=== PATIENT | male | born 1965 | race Caucasian/White ===

== ENCOUNTER → 2019-04-29 09:34 | Outpatient (CLI) | payer BC, SELFPAY ==
--- NOTE | 2019-04-29 09:54 | CT_ITS ---
PROCEDURE: CT LUNG SCREENING CLINICAL INDICATION: NICOTINE DEPENDENCE Greater than 30 pack-year smoking history, asymptomatic for lung cancer COMPARISON: No exams were available for comparison TECHNIQUE: The exam was performed on a GE Light Speed [address] scanner using 2.90 mGy CTDI. A low dose helical CT CHEST was performed on a multi-detector scanner. All CT scans at the facility use one or more dose reduction, viz: automated exposure control, ma/kV adjustment per patient size (including targeted exams where dose is matched to indication, i.e. head), or iterative reconstruction technique. The LDCT was performed in a facility that meets the criteria for the screening program. Data regarding this exam was submitted to ACR which is an approved registry. The order for this exam indicates that it came as a result of a lung cancer screening counseling shard decision-making visit that included all the elements required of such a visit including smoking cessation. The radiologist interpreting this exam meets the [facility] criteria for the LDCT lung cancer screening program. The exam is reported using the Lung-RADS classification scale and reported to the ACR registry. NOTE: This study was performed for the specific purposes of lung cancer screening and is not an alternative to diagnostic chest CT. RADIATION DOSE: CTDI vol(CT dose Index-volume) = 2.90mG DLP (Dose Length Product) = 108.38 mGcm Lung Rads Category: FINDINGS: COPD with scattered areas of scarring. Fibronodular changes are present in both apices. There is a cluster of small nodules in the right middle lobe laterally and noncalcified nodule in the right middle lobe inferiorly and anteriorly at 6 mm. There is evidence of old granulomatous disease with scattered calcified granulomas there is mild coarsening of the bronchovascular markings which may be seen with smoking related lung disease. OTHER FINDINGS: Coronary artery calcifications. Gynecomastia IMPRESSION: Lung rads category 3 probably benign. Recommend six-month CT follow-up Coronary artery disease COPD Dictated by: Dell Olguin MD 05/04/2019 10:04 Electronically signed by Dell Olguin MD in [place] 05/04/2019 10:04
== END ==
PROVIDERS: PCP Internal Medicine Adolescent Medicine; Visit Provider Internal Medicine Adolescent Medicine
DX: Z87.891 Personal history of nicotine dependence (principal); Z12.2 Encounter for screening for malignant neoplasm of respiratory organs

== ENCOUNTER → 2019-10-25 12:28 | Outpatient (CLI) | payer BC, SELFPAY ==
--- NOTE | 2019-10-25 12:33 | CT_ITS ---
PROCEDURE: CT CHEST WO/W CON CLINCAL INDICATION: MULTIPLE LUNG NODULES,H/O TOBACCO USE Multiple lung nodules,,,smoker COMPARISON: CT CT LUNG SCREENING from 04/29/2019 TECHNIQUE: IV Contrast: 75ml Optiray 350 Axial images obtained with sagittal and coronal reformats. All CT scans at the facility use one or more dose reduction, viz: automated exposure control, ma/kV adjustment per patient size (including targeted exams where dose is matched to indication, i.e. head), or iterative reconstruction technique. FINDINGS: HEART AND MEDIASTINAL STRUCTURES: There are coronary artery calcifications. No mediastinal or hilar mass or adenopathy. Calcified nodes are present in the subcarinal region LUNGS AND PLEURAL SPACES: Changes of COPD. Mild biapical scarring. Minimal centrilobular emphysema. Minimal 4 mm parenchymal opacity is present in the right middle lobe and may be due to an area of parenchymal scarring not significantly changed. Image 53 series 3 parenchymal opacity also noted in the right middle lobe laterally with small nodular opacities at this region which are unchanged 4 mm noncalcified nodule right middle lobe anterior laterally somewhat less apparent compared to the previous exam. No new nodules evident. There are some scattered calcified granulomas BONY STRUCTURES: No acute bony abnormalities apparent. UPPER ABDOMEN: Unremarkable. ADDITIONAL FINDINGS: No other significant abnormalities. IMPRESSION: 1. Stable CT appearance of the chest. Small nodular densities in the right middle lobe are stable. 2. COPD with mild centrilobular emphysema and evidence of old granulomatous disease. 3. Suggest continued screening annual LDCT Dictated by: Dell Olguin MD 10/27/2019 08:19 Dell Olguin MD in [place] 10/27/2019 08:19
[2019-10-25 13:21] LABS: Blood Urea Nitrogen 5 mg/dl (9-20); Estimated Glomerular Filt Rate 78 ml/min (>60); GFR (African American) 94 ML/MIN (>60)
== END ==
PROVIDERS: PCP Internal Medicine Adolescent Medicine; Visit Provider Nurse Practitioner Family
DX: R91.8 Other nonspecific abnormal finding of lung field (principal); Z87.891 Personal history of nicotine dependence
CPT/HCPCS: 36415; 71270; 82565; 84520; Q9967

== ENCOUNTER 2020-04-03 14:03 | Emergency (ER) | payer BC, SELFPAY ==
[2020-04-03 14:40] VITALS: BP 156/72; PULSE 65; RESP 14; TEMP 36.6; O2SAT 100; BMI 25.2
--- NOTE | 2020-04-03 14:48 | HMH.EDUTC ---
[facility] [place] Clinical Impression: Laceration Disposition: Home, Self-Care Condition on Discharge: Good Instructions: How to Care for a Laceration After Repair, Laceration Repair Additional Instructions: Suture instructions: You have required stitches today. Please read the following instructions so you know how to care for them: 1. Keep wound area dry for the first 24 hours. 2 May clean gently with mild soap and water, after 48 hours to prevent crusting over suture knots. 3. You may shower if your provider gives permission but do not take a bath until the skin is healed.. 4. Never leave a wet dressing or Band-Aid on your stitches as this allows bacteria to reach the area and may cause infection. Band-aids can cause the wound to sweat and not recommended to wear for long periods of time Watch for signs of infection: Increasing redness, tenderness or warmth around the suture site Unusual swelling around the site Appearance of pus around each suture or any red streaks Fever If you develop any of the above signs or symptoms of infection, Follow up with Family Physician immediately 5. Suture removal in _7-10___days 6. Return to [facility] or follow up with family doctor for removal. This can be done by any medical provider during regular hours on Monday through Monday, by appointment. Referrals: Ori Paniagua MD [Primary Care Provider] - As needed Time of Disposition: 15:36 Medical Decision Making - Marshall Inquiry Pt receiving controlled substance: No Marshall was queried for this patient: No Vital Signs: 04/03/20 14:40 04/03/20 15:46 Temperature 97.8 F 97.9 F Temperature Source Tympanic Tympanic Pulse Rate 65 Pulse Rate [Right] 65 Respiratory Rate 14 14 Blood Pressure 155/72 H Blood Pressure [Right Arm] 156/72 H Blood Pressure Mean [Right Arm] 100 Blood Pressure Source Automatic Cuff Blood Pressure Source [Right Arm] Automatic Cuff Blood Pressure Position Sitting Blood Pressure Position [Right Arm] Sitting 02 Sat by Pulse Oximetry 100 Medical Decision Narrative: Patient reports last tetanus about 3 yrs [place] [facility] [place] - General Stated complaint: laceration to left thumb Time Seen by Provider: 04/03/20 14:48 Mode of Arrival: Ambulatory Source of Information: Patient Limitations: No Limitations Description of Symptoms (Recalled from Triage Doc. by RN): pt cut left palm with his hunting knife. its about an inch long with clean edges. HEENT Symptoms (Recalled from RN notes): No Resp Symptoms (Recalled from RN notes): No Skin Symptoms (Recalled from RN notes): Yes (laceration on left palm) MS Symptoms (Recalled from RN notes): No Functional Status (Recalled from RN notes): na - History of Present Illness Provider Complaint: Patient states that he accidently cut the palm of his left hand with his hunting knife State that he noticed it looked like he may need stitches so he came in to get it checked States that he is able to move his fingers easily and denies numbness - Related Data Home Medications Medication Instructions Recorded Confirmed cholecalciferol (vitamin D3) 75 3,000 unit PO DAILY 04/29/19 05/14/19 mcg (3,000 unit) tablet cyanocobalamin (vitamin B-12) 3,000 mcg PO DAILY 04/29/19 05/14/19 3,000 mcg capsule montelukast 10 mg tablet 10 mg PO DAILY 04/29/19 05/14/19 tamsulosin 0.4 mg capsule 0.4 mg PO DAILY 04/29/19 05/14/19 Sodium, Potassium,Mag Sulfates See Rx Instructions PO .COMPLEX 05/13/19 05/14/19 [Suprep Bowel Prep Kit] Varenicline Tartrate [Chantix] 0.5 mg PO DAILY 05/14/19 05/14/19 Allergies Allergy/AdvReac Type Severity Reaction Status Date / Time No Known Allergies Allergy Verified 05/13/19 09:31 - Worker's Comp Is this a Worker's Comp case?: No [facility] History - Hepatitis A Screen Drug use history?: No High risk sexual behaviors?: No History of sexually transmitted infection?: No Currently employed?: No Childcare worker?: No Do you have indoor p
[2020-04-03 15:46] VITALS: BP 155/72; PULSE 65; RESP 14; TEMP 36.6
== END 2020-04-03 15:47 | disposition home or self-care (01) ==
PROVIDERS: Emergency Provider Nurse Practitioner; PCP Internal Medicine Adolescent Medicine
DX: S61.012A Laceration without foreign body of left thumb without damage to nail, initial encounter (principal); W26.0XXA Contact with knife, initial encounter; Y92.019 Unspecified place in single-family (private) house as the place of occurrence of the external cause; F17.210 Nicotine dependence, cigarettes, uncomplicated
CPT/HCPCS: 12001; 99202; G0463

== ENCOUNTER → 2021-02-03 06:44 | Outpatient (CLI) | payer BC, SELFPAY ==
--- NOTE | 2021-02-03 06:49 | CT_ITS ---
PROCEDURE: CT LUNG SCREENING CLINICAL INDICATION: CURRENT SMOKER COMPARISON: CT CT CHEST WO/W CON from 10/25/2019 TECHNIQUE: The exam was performed on a GE Light Speed [address] scanner using 2.90 mGy CTDI. A low dose helical CT CHEST was performed on a multi-detector scanner. All CT scans at the facility use one or more dose reduction, viz: automated exposure control, ma/kV adjustment per patient size (including targeted exams where dose is matched to indication, i.e. head), or iterative reconstruction technique. The LDCT was performed in a facility that meets the criteria for the screening program. Data regarding this exam was submitted to ACR which is an approved registry. The order for this exam indicates that it came as a result of a lung cancer screening counseling shard decision-making visit that included all the elements required of such a visit including smoking cessation. The radiologist interpreting this exam meets the CMS criteria for the LDCT lung cancer screening program. The exam is reported using the Lung-RADS classification scale and reported to the ACR registry. NOTE: This study was performed for the specific purposes of lung cancer screening and is not an alternative to diagnostic chest CT. RADIATION DOSE: CTDI vol(CT dose Index-volume) = 2.90mG DLP (Dose Length Product) = 119.59 mGcm FINDINGS: COPD changes. Nonspecific parenchymal opacities right middle lobe as previously described not significantly changed. Subpleural 3 mm nodule right middle lobe unchanged. Scattered calcified granulomas. No suspicious nodules identified. OTHER FINDINGS: Coronary artery calcifications. Calcified subcarinal node. IMPRESSION: Lung-RADS Category 2 Benign Appearance or Behavior Follow-up: Continue annual screening with LDCT in 12 months Dictated by: Dell Olguin MD 02/08/2021 07:36 Dell Olguin MD in [place] 02/08/2021 07:36
== END ==
PROVIDERS: PCP Internal Medicine Adolescent Medicine; Visit Provider Nurse Practitioner Family
DX: Z87.891 Personal history of nicotine dependence (principal); Z12.2 Encounter for screening for malignant neoplasm of respiratory organs
CPT/HCPCS: 71271

== ENCOUNTER → 2022-01-28 18:01 | Outpatient (CLI) | payer BC, SELFPAY | PROVIDERS: PCP Nurse Practitioner Family; Visit Provider Nurse Practitioner Family | DX: U07.1 COVID-19 (principal); J02.9 Acute pharyngitis, unspecified | CPT/HCPCS: 87070; C9803; U0003; U0005 ==

== ENCOUNTER → 2022-02-04 13:15 | Outpatient (CLI) | payer BC, SELFPAY ==
--- NOTE | 2022-02-04 13:18 | CT_ITS ---
FINAL REPORT TECHNIQUE: Axial images were obtained from the lung apex to the mid abdomen by computed tomography. This study was performed with techniques to keep radiation doses as low as reasonably achievable (ALARA). Individualized dose reduction techniques using automated exposure control or adjustment of mA and/or kV according to the patient's size were employed. CLINICAL HISTORY: smoker. 2 ppd x 12 years. COMPARISON: 02/03/2021 and 10/25/2019 FINDINGS: CHEST CT LOW DOSE CTDI vol (mGy): 2.90 DLP (mGy-cm): 108.64 There is no axillary adenopathy. There is no hilar or mediastinal adenopathy. The heart is normal in size. There is no pericardial or pleural effusion. There is mild scarring. There is a stable 3 mm lateral right middle lobe nodule. Several other smaller adjacent nodules are identified. There is a 4 mm lingular nodule which is stable. There is a calcified granuloma in the left lung. Limited images of the upper abdomen are unremarkable. IMPRESSION: Stable nodules for 2 years. Lung RADS category 1. Recommend 12 month follow-up low-dose chest CT. Reviewed, Interpreted and Dictated by Danny Moreno III, MD Transcribed by Ramila Hartman Authenticated and [facility]
== END ==
PROVIDERS: PCP Nurse Practitioner Family; Visit Provider Nurse Practitioner Family
DX: Z87.891 Personal history of nicotine dependence (principal); Z12.2 Encounter for screening for malignant neoplasm of respiratory organs
CPT/HCPCS: 71271

== ENCOUNTER 2022-07-31 18:04 | Emergency (ER) | payer BC, SELFPAY ==
[2022-07-31 18:05] VITALS: BP 161/80; PULSE 68; RESP 18; TEMP 36.8; O2SAT 97; BMI 25.0
--- NOTE | 2022-07-31 18:07 | PC.NURSE ---
DR CENTENO AT BEDSIDE
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
[2022-07-31 18:30] VITALS: BP 141/86; PULSE 68; RESP 18; O2SAT 96
[2022-07-31 18:53] VITALS: BP 141/86; PULSE 68; RESP 18; TEMP 36.7; O2SAT 97
== END 2022-07-31 18:55 | disposition home or self-care (01) ==
PROVIDERS: Emergency Provider Emergency Medicine; PCP Nurse Practitioner Family
DX: T22.231A Burn of second degree of right upper arm, initial encounter (principal); F17.210 Nicotine dependence, cigarettes, uncomplicated; X18.XXXA Contact with other hot metals, initial encounter
CPT/HCPCS: 99283; 99284

== ENCOUNTER 2023-06-05 14:58 | Outpatient (CLI) | payer BC, SELFPAY ==
[2023-06-05 16:27] LABS: Blood Urea Nitrogen 7 mg/dl (9-20); Estimated Glomerular Filt Rate 77 ml/min (>60); GFR (African American) 93 ML/MIN (>60)
[2023-06-06 08:26] LABS: PSA, Free 0.65 ng/mL
== END 2023-06-05 23:59 ==
LOC: LAB 14:58
PROVIDERS: PCP Internal Medicine Adolescent Medicine; Visit Provider Urology
DX: Z98.52 Vasectomy status (principal); N40.0 Benign prostatic hyperplasia without lower urinary tract symptoms
CPT/HCPCS: 36415; 82565; 84153; 84154; 84520

== ENCOUNTER 2023-06-09 14:50 | Emergency (ER) | payer BC, SELFPAY ==
[2023-06-09] VITALS (8 sets, daily range): BP systolic 92–166; BP diastolic 55–89; PULSE 49–86; RESP 13–19; TEMP 36.4–36.7; O2SAT 93–99; BMI 26.9
--- NOTE | 2023-06-09 14:52 | PC.NURSE ---
Dr. Corcoran at [facility] for pt eval
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
--- NOTE | 2023-06-09 14:55 | CT_ITS ---
FINAL REPORT TECHNIQUE: Thin section axial CT with IV contrast supplemented with multiplanar reconstruction under CT angiogram protocol. 3-D reconstructions were performed. This study was performed with techniques to keep radiation doses as low as reasonably achievable (ALARA). Individualized dose reduction techniques using automated exposure control or adjustment of mA and/or kV according to the patient''s size were employed. CLINICAL HISTORY: trauma, critical injury suspected FINDINGS: The distal vertebral, basilar and distal internal carotid arteries have an unremarkable appearance. No aneurysm is seen. Major intracranial vessels are patent without significant stenosis. IMPRESSION: No evidence of significant stenosis or occlusion. Reviewed, Interpreted and Dictated by Danny Moreno III, MD Transcribed by Ramila Hartman Authenticated and [facility]
--- NOTE | 2023-06-09 14:55 | CT_ITS ---
FINAL REPORT TECHNIQUE: Postcontrast axial images of the chest were performed in a CTA protocol. This study was performed with techniques to keep radiation doses as low as reasonably achievable, (ALARA). Individualized dose reduction technique using automated exposure control or adjustment of mA and/or kV according to the patient's size were employed. CLINICAL HISTORY: trauma, critical injury suspected FINDINGS: The heart is normal in size. No adenopathy is identified. No pleural or pericardial effusion is identified. The thoracic aorta is normal in caliber with no focal aneurysm or dissection identified. There is no filling defect to suggest pulmonary embolism. No lung infiltrate or mass is identified. Mild atelectasis is seen. There is no pneumothorax. No acute osseous abnormality of the chest is seen. IMPRESSION: No evidence for PE on this exam. Reviewed, Interpreted and Dictated by Danny Moreno III, MD Transcribed by Ludivina Cantu Authenticated and [facility]
--- NOTE | 2023-06-09 14:55 | CT_ITS ---
FINAL REPORT TECHNIQUE: Axial images were obtained of the cervical spine by computed tomography. Coronal and sagittal reconstruction process performed. This study was performed with techniques to keep radiation doses as low as reasonably achievable (ALARA). Individualized dose reduction techniques using automated exposure control or adjustment of mA and/or kV according to the patient''s size were employed. CLINICAL HISTORY: trauma, critical injury suspected FINDINGS: There is no acute fracture. Mild and moderate degenerative changes are present. There is neural foraminal narrowing at C4-5 and C5-6. There is mild central canal stenosis at C5-6. IMPRESSION: No acute fracture. Degenerative disc disease as above. Reviewed, Interpreted and Dictated by Danny Moreno III, MD Transcribed by Ramila Hartman Authenticated and [facility]
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
--- NOTE | 2023-06-09 14:55 | CT_ITS ---
FINAL REPORT CLINICAL HISTORY: trauma, critical injury suspected FINDINGS: Axial CT images of the thoracic spine were obtained without contrast. Sagittal and coronal reformatted images were also obtained. This study was performed with techniques to keep radiation doses as low as reasonably achievable (ALARA). Individualized dose reduction techniques using automated exposure control or adjustment of mA and/or kV according to the patient's size were employed. There is no evidence of fracture. Mild degenerative changes are present. There is no canal stenosis. IMPRESSION: Mild degenerative changes without acute bony abnormality. Reviewed, Interpreted and Dictated by Danny Moreno III, MD Transcribed by Ramila Hartman Authenticated and . [facility]
--- NOTE | 2023-06-09 14:55 | CT_ITS ---
FINAL REPORT CLINICAL HISTORY: trauma, critical injury suspected FINDINGS: Axial images of the head were obtained without contrast. Coronal reformatted images were also obtained.This study was performed with techniques to keep radiation doses as low as reasonably achievable (ALARA). Individualized dose reduction techniques using automated exposure control or adjustment of mA and/or kV according to the patient's size were employed. There is no evidence of intracranial hemorrhage or mass. The ventricular size is within normal limits. There is no evidence of shift of the midline structures. No abnormal extra axial fluid collection is identified. No skull abnormality is seen on the bone window images. IMPRESSION: No acute intracranial abnormality. Reviewed, Interpreted and Dictated by Danny Moreno III, MD Transcribed by Ramila Hartman Authenticated and [facility]
--- NOTE | 2023-06-09 14:56 | XR_ITS ---
FINAL REPORT CLINICAL HISTORY: fall 14 ft COMPARISON: None FINDINGS: SINGLE VIEW PELVIS: A single view of the pelvis was obtained. There is no acute fracture or dislocation. There are mild degenerative changes of the hips. Visualized joint spaces are normally aligned. Soft tissues are unremarkable. IMPRESSION: No acute bony abnormality. Reviewed, Interpreted and Dictated by Danny Moreno III, MD Transcribed by Sona Kuo Authenticated and [facility]
--- NOTE | 2023-06-09 14:56 | XR_ITS ---
FINAL REPORT CLINICAL HISTORY: fall 14 ft COMPARISON: None FINDINGS: A single portable view of the chest was obtained. The heart size and pulmonary vascularity are within normal limits. The mediastinum is within normal limits. No acute pulmonary abnormality is identified. The bony thorax is intact. IMPRESSION: No active cardiopulmonary disease. Reviewed, Interpreted and Dictated by Danny Moreno III, MD Transcribed by Sona Kuo Authenticated and [facility]
[2023-06-09] MEDS: FENTANYL 250MCG/5ML VIAL 100 MCG IV (15:00)
[2023-06-09] MEDS: ONDANSETRON 4MG/2ML VIAL 4 MG IV (15:00)
[2023-06-09] MEDS: LACTATED RINGERS 1000ML 1,000 ML 999 ML IV (15:00)
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
--- NOTE | 2023-06-09 15:02 | PC.NURSE ---
Manual BP 110/60
--- NOTE | 2023-06-09 15:09 | PC.NURSE ---
SMALL VOID PER URINAL
--- NOTE | 2023-06-09 15:10 | PC.NURSE ---
PT TO CT
--- NOTE | 2023-06-09 15:10 | PC.NURSE ---
Pt gone to RAD via stretcher
--- NOTE | 2023-06-09 15:10 | PC.NURSE ---
patient gone to CT at this time.
[2023-06-09 15:26] LABS: Microscopic, Urine URINE MICROSCOPIC (MICROSCOPIC)
[2023-06-09 15:31] LABS: Chloride 103 mmol/L (98-107); Potassium 3.5 mmoL/L (3.5-5.1); Sodium 137 mmol/L (136-145)
[2023-06-09 15:32] LABS: Activated Partial Thrombo Time 24.6 seconds (22.8-30.6); INR 1.02 (0.9-1.1)
[2023-06-09 15:33] LABS: Alanine Aminotransferase 31 U/L (12-78); Alkaline Phosphatase 69 U/L (38-126); Aspartate Amino Transferase 45 U/L (17-59); Blood Urea Nitrogen 6 mg/dl (9-20); Creatinine Clearance Estimated 70 mL/min (50-200); Estimated Glomerular Filt Rate 62 ml/min (>60); GFR (African American) 75 ML/MIN (>60)
[2023-06-09 15:34] LABS: Appearance,Urine CLEAR (Clear); Bilirubin,Urine Negative (Negative); Blood, Urine Negative (Negative); Color,Urine YELLOW (Yellow); Glucose,Urine (UA) Negative (Negative); Ketones,Urine Negative (Negative); Leukocyte Esterase,Urine Negative (Negative); Nitrate,Urine Negative (Negative); Protein,Urine Negative (Negative); Specific Gravity, Urine <= 1.005 (1.005-1.030); Urobilinogen,Urine 0.2 EU/dl (0.2)
[2023-06-09 15:34] LABS: Albumin/Globulin Ratio 1.7 (1.1-1.8); Anion Gap 5.5 mEq/L (5-15); Calcium 8.9 mg/dl (8.4-10.2); Carbon Dioxide 32 mmol/L (22.0-30.0); Globulin 2.4 g/dL (1.3-3.2); Glucose 135 mg/dl (74-100); Total Protein,Serum 6.4 g/dl (6.3-8.2)
--- NOTE | 2023-06-09 15:47 | PC.NURSE ---
PT RETURNED FROM CT
[2023-06-09 15:52] LABS: Squamous Epithelial Cell,Urine Occasional #/hpf (0-5); WBC,Urine Occasional #/hpf (0-3)
[2023-06-09] MEDS: SODIUM CHLORIDE 0.9% 10ML SYR (RAD ONLY) 10 ML IV (15:53)
[2023-06-09] MEDS: 0.9 % SODIUM CHLORIDE 50 ML VIAL 100 ML IV (15:53)
[2023-06-09] MEDS: IOPAMIDOL-370 (76%);100ML BOTTLE 200 ML IV (15:53)
--- NOTE | 2023-06-09 16:05 | PC.NURSE ---
DR WEBER AT BEDSIDE
--- NOTE | 2023-06-09 16:09 | PC.NURSE ---
PT PROVIDED URINAL. S.O.. AT BEDSIDE. NO FURTHER NEEDS AT THIS TIME
--- NOTE | 2023-06-09 16:38 | PC.NURSE ---
o/p with transfer center at this time.
--- NOTE | 2023-06-09 16:41 | PC.NURSE ---
ROUNDED ON PT, ADDITIONAL WARM BLANKET APPLIED. REQUESTS PAIN MEDICATION. AWARE
--- NOTE | 2023-06-09 16:43 | PC.NURSE ---
o/p with at this time
[2023-06-09] MEDS: HYDROMORPHONE 2MG/ML SYRINGE 0.5 MG IV (16:52)
--- NOTE | 2023-06-09 17:35 | PC.NURSE ---
pt and family aware of no truck availability at this time.
--- NOTE | 2023-06-09 18:18 | PC.NURSE ---
REPORT CALLED TO LINDA HACKETT AT ED
== END 2023-06-09 19:05 | disposition short-term general hospital (02) ==
PROVIDERS: Emergency Medicine; Emergency Provider Emergency Medicine; PCP Internal Medicine Adolescent Medicine
DX: S32.010A Wedge compression fracture of first lumbar vertebra, initial encounter for closed fracture (principal); S32.10XA Unspecified fracture of sacrum, initial encounter for closed fracture; F17.210 Nicotine dependence, cigarettes, uncomplicated; J44.9 Chronic obstructive pulmonary disease, unspecified; W11.XXXA Fall on and from ladder, initial encounter
CPT/HCPCS: 70450; 70496; 70498; 71045; 71275; 72125; 72128; 72131; 72170; 72192; 74174; 80053; 81001; 85610; 85730; 96361; 96374; 96375; 99285; J2405; Q9967

== ENCOUNTER 2023-06-27 14:39 | Outpatient (CLI) | payer BC, SELFPAY ==
[2023-06-27 15:32] LABS: PH,Semen 8.5 (7.3-8.3); Semen Viscosity Watery (Normal); Volume,Semen 3.5 ml (2.0-5.0); WBCs,Semen Trace
[2023-06-27 15:33] LABS: Sperm Count 0 mil/mm3 (20-160)
== END 2023-06-27 23:59 | disposition home or self-care (01) ==
LOC: LAB 14:40
PROVIDERS: PCP Nurse Practitioner Family; Visit Provider Urology
DX: Z98.52 Vasectomy status (principal); N40.0 Benign prostatic hyperplasia without lower urinary tract symptoms
CPT/HCPCS: 89320

== ENCOUNTER 2023-08-22 07:50 | Outpatient (CLI) | payer BC, SELFPAY ==
[2023-08-22] MEDS: ALBUTEROL 0.083% 2.5 MG/3 ML NEB IH (08:31)
--- NOTE | 2023-08-22 08:31 | PC.NURSE ---
PFT and 6 Minute Walk Test completed without incident. Albuterol 0.083% given, per written protocol, via HHN, Pt tolerated tx well.
== END 2023-08-22 23:59 | disposition home or self-care (01) ==
LOC: RT 07:51
PROVIDERS: PCP Internal Medicine Adolescent Medicine; Visit Provider Internal Medicine Pulmonary Disease
DX: R06.09 Other forms of dyspnea (principal)
CPT/HCPCS: 94060; 94618; 94726; 94729; J7613

== ENCOUNTER 2024-04-10 19:37 | Emergency (ER) | payer BC, SELFPAY ==
[2024-04-10] VITALS (7 sets, daily range): BP systolic 141–157; BP diastolic 74–88; PULSE 60–72; RESP 16–18; TEMP 36.6; O2SAT 96–99; BMI 25.8
--- NOTE | 2024-04-10 19:35 | ECG_ITS ---
APPROVED REPORT Exam: Resting ECG HR:66 bpm ECG Measurements Heart Rate 66 AXES RI 157 P 74 QRSd 105 QRS 64 QT 389 T 53 QTc 403 Conclusion Sinus rhythm Electronically signed by : CLINT AWAN, 04/10/2024 22:09:42
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
--- NOTE | 2024-04-10 19:42 | CT_ITS ---
PROCEDURE INFORMATION: Exam: CTA Chest With Contrast Exam date and time: 04/10/2024 8:17 PM Age: 58 years old Clinical indication: Pain; Chest pressure; Additional info: Left-sided chest pain dyspnea TECHNIQUE: Imaging protocol: Computed tomographic angiography of the chest with contrast. Exam focused on the arteries. 3D rendering (Not supervised by radiologist): MIP and/or 3D reconstructed images were created by the technologist. Radiation optimization: All CT scans at this facility use at least one of these dose optimization techniques: automated exposure control; mA and/or kV adjustment per patient size (includes targeted exams where dose is matched to clinical indication); or iterative reconstruction. Contrast material: ISOVUE; Contrast volume: 70 ml; Contrast route: INTRAVENOUS (IV); COMPARISON: CT ANGIO CHEST 06/09/2023 3:34 PM FINDINGS: Pulmonary arteries: Normal. No pulmonary emboli. Aorta: Mild calcification of the aorta. Lungs: Multiple subpleural nodules in the right middle lobe measuring up to 5 mm. Mild tree-in-bud opacities in the right middle lobe. Calcified granulomata in the right lower lobe. Pleural spaces: Unremarkable. No pneumothorax. No pleural effusion. Heart: Unremarkable. No cardiomegaly. No pericardial effusion. Coronary arteries: Mild calcification of the coronary arteries. Lymph nodes: Calcified subcarinal lymph nodes. Bones/joints: Unremarkable. No acute fracture. Soft tissues: Unremarkable. IMPRESSION: 1. No pulmonary embolus. 2. No aortic aneurysm or dissection. 3. Mild tree-in-bud opacities in the right middle lobe. Suspicious for infectious bronchiolitis 4. Multiple subpleural nodules in the right middle lobe measuring up to 5 mm. Stable in appearance compared to 06/09/2023. As per Fleischner Society guidelines for follow-up and management of multiple pulmonary nodules measuring less than 6 mm: For patients at low risk, no specific followup is recommended. For patients at high risk, consider followup CT in 12 months.
[2024-04-10 19:48] LABS: Basophils # 0.1 K/mm3 (0-0.2); Basophils % 0.7 % (0.1-2.0); Eosinophils # 0.2 K/mm3 (0.0-0.4); Eosinophils % 1.8 % (0.1-12.0); Hematocrit 43.3 % (42.0-52.0); Hemoglobin 14.9 g/dL (14.1-18.0); Lymphocytes % 19.3 % (10-50); Mean Corpuscular HGB Conc 34.4 g/dL (31.8-35.4); Mean Corpuscular Hemoglobin 31.9 pg (27.0-31.2); Mean Corpuscular Volume 92.7 fl (80-94); Mean Platelet Volume 10.6 fl (7.4-10.4); Monocytes # 0.4 K/mm3 (0.1-1.0); Neutrophils # 7.6 K/mm3 (1.8-7.8); Neutrophils % 73.5 % (37.0-80.0); Platelet Count 270 K/mm3 (142-424); Red Blood Count 4.67 M/mm3 (4.60-6.20); Red Cell Distribution Width 12.9 % (11.5-17.5); White Blood Count 10.4 K/mm3 (4.8-10.8)
[2024-04-10 19:52] LABS: Coronavirus 19, PCR Not Detected (NotDetected); Influenza A, PCR Not Detected (NotDetected); Influenza B, PCR Not Detected (NotDetected)
[2024-04-10 19:52] LABS: Albumin Level 4.4 g/dl (3.5-5.0); Chloride 103 mmol/L (98-107); Potassium 3.7 mmoL/L (3.5-5.1); Sodium 139 mmol/L (136-145)
[2024-04-10] MEDS: DEXAMETHASONE 4MG/ML 5ML MDV 10 MG IV (19:53)
[2024-04-10] MEDS: KETOROLAC 30MG/ML VIAL 15 MG IV (19:53)
[2024-04-10] MEDS: ACETAMINOPHEN 1,000MG/100ML VIAL 1000 MG IV (19:53)
[2024-04-10 19:55] LABS: Alanine Aminotransferase 28 U/L (12-78); Albumin/Globulin Ratio 1.8 (1.1-1.8); Anion Gap 8.7 mEq/L (5-15); Aspartate Amino Transferase 37 U/L (17-59); Blood Urea Nitrogen 12 mg/dl (9-20); Calcium 9.1 mg/dl (8.4-10.2); Carbon Dioxide 31 mmol/L (22.0-30.0); Creatinine Clearance Estimated 74 mL/min (50-200); Estimated Glomerular Filt Rate 69 ml/min (>60); GFR (African American) 83 ML/MIN (>60); Globulin 2.4 g/dL (1.3-3.2); Glucose 143 mg/dl (74-100); INR 0.93 (0.9-1.1); Prothrombin Time 10.5 seconds (10.1-12.5); Total Protein,Serum 6.8 g/dl (6.3-8.2)
[2024-04-10 19:56] LABS: Alkaline Phosphatase 56 U/L (38-126); Bilirubin,Total 0.6 mg/dl (0.2-1.3)
[2024-04-10 20:00] LABS: VBG Base Excess 0.3 mmol/L (-2.4-2.3); VBG HCO3 25.9 mmol/L (23-30); VBG Oxygen Saturation 58.9 % (50-70); VBG PH 7.35 mmol/L (7.31-7.41); VBG PO2 31.7 mmol/L (28-40); VBG Total CO2 27.4 mmol/L (23-27)
[2024-04-10 20:05] LABS: NT Pro Brain Natriuretic Pep. 34.7 pg/mL (0-125)
[2024-04-10] MEDS: IPRATROPIUM/ALBUTEROL 3 ML NEB IH (20:07)
[2024-04-10 20:13] LABS: Troponin I < 0.01 ng/ml (0.00-0.034)
[2024-04-10] MEDS: IOPAMIDOL-370 (76%);100ML BOTTLE 70 ML IV (20:18)
[2024-04-10] MEDS: SODIUM CHLORIDE 0.9% 10ML SYR (RAD ONLY) 10 ML IV (20:18)
[2024-04-10] MEDS: 0.9 % SODIUM CHLORIDE 50 ML VIAL IV (20:18)
--- NOTE | 2024-04-10 20:18 | PC.NURSE ---
Rounding, patient resting comfortably
[2024-04-10 20:40] LABS: Procalcitonin 0.054 ng/mL (0.0-2.0)
== END 2024-04-10 21:29 | disposition home or self-care (01) ==
PROVIDERS: Physician Assistant; Emergency Provider Emergency Medicine; PCP Family Medicine
DX: R07.9 Chest pain, unspecified (principal); F17.210 Nicotine dependence, cigarettes, uncomplicated
CPT/HCPCS: 71275; 80053; 82803; 83735; 83880; 84145; 84484; 85025; 85610; 87636; 93005; 96374; 96375; 99285; J0131; J1100; J1885; J7620; Q9967

== ENCOUNTER 2024-05-15 06:55 | Outpatient (CLI) | payer BC, SELFPAY ==
--- NOTE | 2024-05-15 | CA_ITS ---
APPROVED REPORT Exam: Exercise Treadmill Technologist: Marycarmen Cardoso Ht: 5 ft 6 in Wt: 161 lbs BSA: 1.82 m2 Stress Test Details Test: Exercise stress testing was performed using a modified Babar protocol. HR Resting HR: 50 bpm Max Heart Rate (APMHR): 161 bpm Max HR Achieved: 130 bpm Target HR (85% APMHR): 137 bpm % of APMHR: 81 Recovery HR: 77 bpm HR response to stress: Blunted HR response to stress BP Resting BP: 138.0/73.0 mmHg Max BP: 190.0/80.0 mmHg Recovery BP: 132.0/89.0 mmHg BP response to stress: Normal blood pressure response to stress. ECG Resting ECG: SR Stress ECG Conclusion Of note, this is this was a nondiagnostic stress test in the setting of inability to achieve target HR. Manual. Had to decrease speed due to knee pain, but kept incline increased 4MPH 20% incline. Injected @ HR 132. Stopped due to knee pain. 18:30 minutes. Symptoms: Mild CP. Arrhythmias/Ectopy: None. ST-T Changes: [address] depression Conclusion: Nondiagnostic stress test due to inability to achieve target HR. Equivocal findings of [address] depression at peak stress at the level of HR achieved. Myoview images are reported separately. Electronically signed by : Shayy Botello MD 05/19/2024 21:20:40
--- NOTE | 2024-05-15 06:58 | NM_ITS ---
APPROVED REPORT Exam: Nuclear Stress Test Indication: hyperlipidemia, tob use, fm hx, c.p., sob Patient Location: Outpatient Stress Tech: Marycarmen Szymanski [place] Tech:Brianna Jeff KEYLenora RT (R)(N)(M) Ht: 5 ft 6 in Wt: 160 lbs HR: 50 bpm BP: 138/73 mmHg BSA: 1.82 m2 TID: 1.09 BMI: 25.8 History: hyperlipidemia, tob use, fm hx, c.p., sob Procedure: Patient exercised on Babar protocol 18:30 minutes and sec, resting heart rate 50 bpm, resting blood pressure 138/73 mmHg, with exercise maximum heart rate achived was 130 bpm which is 81 % of the maximum predicted heart rate and blood pressure was 190/80 mmHg. Test was stopped due to mild c.p.. Patient has Average exercise capacity, achieved 17.4 METs of workload on treadmill, the blood pressure response to exercise was Normal. Cardiac Stress and Resting SPECT Images: Cardiac Stress and Resting SPECT images were obtained using technetium 99m Myoview 31.4 mCi stress and 10.43 mCi at rest. This is a suboptimal study in the setting of inability to achieve target HR at the time of stress testing. Resting and stress imaging in supine and prone positions demonstrate a large sized, moderate, predominantly fixed perfusion defect in the anterior, as well as the inferior LV otero. There is a small region of reversibility towards the distal inferior LV wall. Gated imaging demonstrates mild reduction global LV systolic function. LVEF is estimated at 48%. Conclusion: This is a suboptimal study in the setting of inability to achieve target HR at the time of stress testing. Resting and stress imaging in supine and prone positions demonstrate a large sized, moderate, predominantly fixed perfusion defect in the anterior, as well as the inferior LV otero. There is a small region of reversibility towards the distal inferior LV wall. Findings are suggestive of partial reversible ischemia. Gated imaging demonstrates mild reduction global LV systolic function. LVEF is estimated at 48%. Electronically signed by : Shayy Botello MD 05/16/2024 00:57:09
[2024-05-15] MEDS: SODIUM CHLORIDE 0.9% 10ML SYR (RAD ONLY) 10 ML IV ×2 (07:05→09:00)
--- NOTE | 2024-05-15 07:06 | CA_ITS ---
APPROVED REPORT EXAM: Comprehensive 2D, Doppler, and color-flow Echocardiogram Manager Meeting: Nicolle Sykes RDCS Ht: 5 ft 6 in Wt: 163lbs BSA: 1.83 BP: 159/91 mmHg Indications: CP,COPD,SMOKER,HLP 2D Dimensions Left Atrium 2.74 cm M: 3.0 - 4.0 EF AP4 57.70 % LVOT 1.95 cm (M/F) 1.5-2.5 GL Strain -19.9 % M-Mode Dimensions RVDd 1.98 cm (0.9-2.6) LVDd 5.93 cm (3.5-5.7) Ao Diam 2.86 cm (2.0-3.7) LVDs 4.03 cm (3.5-5.7) IVSd 0.53 cm (0.6-1.1) PWd 0.68 cm (0.6-1.1) EF (Teich) 59.30% FS 32.00% EDV (Teich) 175.20 mL TAPSE 2.17 (<1.7) ESV (Teich) 71.30 mL LV Diastology E Decel Time 178 (160-240 msec) E/A Ratio 2.0 MED E' 8.4 (>= 7 cm/sec) E'/MED E' Ratio 10.54 (<= 14) LAT E' 10.4 (>= 10 cm/sec) E/LAT E' Ratio 8.51 (<= 14) Aortic Valve LVOT Max 98.0 (70-110 cm/s) MARIBEL Index 1.16 cm2/m2 LVOT VTI 22.00 cm AoV Peak Emir. 145.0 (50-130 cm/s) AO Mean GR. 4.20 (<5 mmHg) AO VTI 31.0 (18-25 cm) MARIBEL (VTI) 2.12 (2.5-4.5 cm2) Mitral Valve MV E Max Emir. 88.0 (40-130 cm/s) MV A Velocity 44.0 (40-130 cm/s) E/A Ratio 1.99 MV Decel. Time 178 (160-240 ms) Left Ventricle The left ventricle is normal size. The left ventricular systolic function is normal. The left ventricular ejection fraction is within the normal range. There is normal left ventricular wall thickness. There is normal LV segmental wall motion. The left ventricular diastolic function is normal. LVEF is 55%. Right Ventricle The right ventricle is normal size. The right ventricular systolic function is normal. Atria The left atrium size is normal. The right atrium size is normal. There is no Doppler evidence of interatrial shunt. Aortic Valve Aortic valve is bicuspid. Aortic valve is mildly thickened. Trace aortic regurgitation. There is no hemodynamically significant aortic stenosis. Mitral Valve The mitral valve is normal in structure. No evidence of mitral valve stenosis. Trace mitral regurgitation. Tricuspid Valve Tricuspid valve is grossly normal in structure and function. Trace tricuspid regurgitation. There is insufficient TR jet to estimate RVSP. Pulmonic Valve The pulmonary valve is normal in structure. Trace pulmonic regurgitation. Great Vessels The aortic root is normal in size. IVC is normal in size and collapses >50% with inspiration. Pericardium There is no pericardial effusion. Other Information Study Quality: Fair Conclusion Normal biventricular systolic function. Bicuspid aortic valve, with no aortic stenosis or significant regurgitation. Electronically signed by : Shayy Botello MD 05/23/2024 00:29:36
[2024-05-15] MEDS: ISOTOPE MYOVIEW (PER STUDY) 1 DOSE IV (10:04)
== END 2024-05-15 23:59 | disposition home or self-care (01) ==
LOC: RAD 06:57
PROVIDERS: PCP Family Medicine; Visit Provider Nurse Practitioner
DX: I25.10 Atherosclerotic heart disease of native coronary artery without angina pectoris (principal); R06.09 Other forms of dyspnea; R07.9 Chest pain, unspecified; E78.5 Hyperlipidemia, unspecified
CPT/HCPCS: 78452; 93017; 93018; 93306; A9502

== ENCOUNTER 2024-05-28 08:28 | Day surgery (SDC) | payer BC, SELFPAY ==
[2024-05-28] VITALS (11 sets, daily range): BP systolic 137–166; BP diastolic 58–85; PULSE 46–66; RESP 16–20; O2SAT 96–100; BMI 25.8
--- NOTE | 2024-05-28 07:10 | IR_ITS ---
APPROVED REPORT Patient Location: Outpatient PROCEDURES Left heart catheterization Left ventriculogram selective coronary angiogram Drug-eluting stent deployment to the ostial proximal mid and distal dominant right coronary in a contiguous manner INDICATION Coronary artery disease, Angina pectoris, Abnormal Myoview Informed consent was obtained prior to the procedure. COMPLICATIONS NONE Estimated Blood Loss: LESS THAN 10 ML TECHNIQUE One percent lidocaine used to anesthetize the right anterior aspect of the wrist. The right radial artery was accessed via the Seldinger technique. A 6 Hebrew sheath was placed in the right radial artery. 2.5 mg of Verapamil, 800 mcg of nitroglycerin, 1mg Lidocaine and 5000 U Heparin were given through the arterial sheath. The papa catheter was also used to perform left heart catheterization, left ventriculogram and selective coronary angiogram. At the end the diagnostic angiogram therapeutic Was administered giving a therapeutic ACT and the guide cath was placed in the right coronary followed by Choice PT export wire placed distally. The guide catheter was pulled out of the right coronary artery due to severe dampening each time it was engaged. 3 mm x 34 mm [place] frontier stent was deployed at 16 hunter reducing the stenosis. An additional 3 mm x 34 mm [place] frontier stent was placed distal to the for stent yet still overlapping and deployed at 16 hunter. An additional 3 mm x 26 mm [place] frontier stent was placed distal to the second stent yet still overlapping and deployed at 16 hunter. The balloon was pulled back quarter length and then deployed at 20 and then 24 hunter. All stents from the midportion of the 26 mm stents back to the ostium were postdilated at 24 hunter. EDILSON-3 flow was present before and after the procedure at the end of procedure the apparatus was removed the sheath was removed hemostasis was achieved using TR banding patient was transferred to the postop holding area in stable condition ANGIOGRAPHIC RESULTS The left main artery Normal The left anterior descending artery Has proximal and mid vessel 30% stenoses The circumflex artery Is nondominant but gives rise to a large first obtuse marginal artery. The proximal circumflex artery has a concentric 40% stenosis The right coronary artery Large and dominant and has a proximal eccentric 80% stenosis followed by 50% concentric stenosis with mid vessel tandem 50% stenoses and a distal 60 to 70% stenosis The GIANG ventriculogram reveals Not performed The left ventricular end-diastolic pressure Not measured IMPRESSION Severe disease throughout the right coronary as described above Successful stent to the ostial proximal mid distal dominant right coronary severe disease reduced to 0% with 3 drug-eluting stents Moderate disease in a proximal nondominant circumflex artery supplying a large first obtuse marginal artery Mild to moderate disease throughout the LAD PLAN 1. Effient and aspirin 2. LDL less than 55 achieved with high intensity statin 3. Avoidance of tobacco products 4. Risk factor modification 5. Cardiac rehabilitation Electronically signed by : Billy Corbett MD 05/28/2024 13:51:31
[2024-05-28 11:37] LABS: Basophils # 0.1 K/mm3 (0-0.2); Eosinophils # 0.5 K/mm3 (0.0-0.4); Eosinophils % 5.8 % (0.1-12.0); Hematocrit 47.7 % (42.0-52.0); Hemoglobin 16.1 g/dL (14.1-18.0); Lymphocytes # 1.8 K/mm3 (0.7-4.5); Lymphocytes % 21.6 % (10-50); Mean Corpuscular HGB Conc 33.8 g/dL (31.8-35.4); Mean Corpuscular Hemoglobin 31.7 pg (27.0-31.2); Mean Corpuscular Volume 93.9 fl (80-94); Mean Platelet Volume 10.5 fl (7.4-10.4); Monocytes # 0.6 K/mm3 (0.1-1.0); Monocytes % 6.8 % (1.7-9.3); Neutrophils # 5.3 K/mm3 (1.8-7.8); Neutrophils % 63.5 % (37.0-80.0); Platelet Count 259 K/mm3 (142-424); Red Blood Count 5.08 M/mm3 (4.60-6.20); Red Cell Distribution Width 12.6 % (11.5-17.5); White Blood Count 8.4 K/mm3 (4.8-10.8)
[2024-05-28 11:47] LABS: Chloride 101 mmol/L (98-107); Potassium 3.7 mmoL/L (3.5-5.1); Sodium 141 mmol/L (136-145)
[2024-05-28 11:50] LABS: Anion Gap 7.7 mEq/L (5-15); Blood Urea Nitrogen 12 mg/dl (9-20); Calcium 8.9 mg/dl (8.4-10.2); Carbon Dioxide 36 mmol/L (22.0-30.0); Creatinine Clearance Estimated 63 mL/min (50-200); Estimated Glomerular Filt Rate 57 ml/min (>60); GFR (African American) 68 ML/MIN (>60); Glucose 96 mg/dl (74-100)
[2024-05-28] MEDS: HEPARIN 1,000 UNITS/ML 10ML VIAL (CATH LAB) 10000 UNIT IV (12:07)
[2024-05-28] MEDS: diphenhydrAMINE 50MG/ML VIAL 50 MG IV (12:07)
[2024-05-28] MEDS: LIDOCAINE 1% 10ML MDV 20 ML IJ (12:07)
[2024-05-28] MEDS: HEPARIN 1,000 UNITS/500ML NS (CATH LAB) 3000 UNIT IV (12:08)
[2024-05-28] MEDS: VERAPAMIL 2.5MG/ML 2ML VIAL 2.5 MG IV (12:08)
[2024-05-28] MEDS: NITROGLYCERIN 800MCG/8ML SYR (CATH LAB) 800 MCG IA (12:08)
[2024-05-28] MEDS: 0.9 % SODIUM CHLORIDE 500 ML 25 ML IV (12:08)
[2024-05-28] MEDS: MIDAZOLAM HCL 1MG/ML 5ML VIAL 1 MG IV (13:20)
[2024-05-28] MEDS: FENTANYL 100MCG/2ML VIAL 50 MCG IV (13:20)
[2024-05-28] MEDS: PRASUGREL 10MG TAB 60 MG PO (13:33)
[2024-05-28] MEDS: ASPIRIN 325MG TABLET 325 MG PO (13:34)
--- NOTE | 2024-05-28 13:42 | SUR.PHASEII ---
no betablocker, no james/arb per md
[2024-05-28] MEDS: IOPAMIDOL-370 (76%);100ML BOTTLE 110 ML IV (14:41)
[2024-05-28 15:08] LABS: CATHL Activated Clotting Time 395 SEC (74-125)
--- NOTE | 2024-05-28 15:26 | SUR.PHASEII ---
Notified clinic pharmacy of meds to beds and pt is ready for meds to be delivered
== END 2024-05-28 16:12 | disposition home or self-care (01) ==
PROVIDERS: PCP Family Medicine; Visit Provider Internal Medicine
DX: I25.118 Atherosclerotic heart disease of native coronary artery with other forms of angina pectoris (principal); R93.1 Abnormal findings on diagnostic imaging of heart and coronary circulation; Z95.5 Presence of coronary angioplasty implant and graft; R06.09 Other forms of dyspnea; F17.210 Nicotine dependence, cigarettes, uncomplicated; J44.9 Chronic obstructive pulmonary disease, unspecified; Z79.51 Long term (current) use of inhaled steroids; Z79.899 Other long term (current) drug therapy; I77.1 Stricture of artery; Z82.49 Family history of ischemic heart disease and other diseases of the circulatory system
CPT/HCPCS: 80048; 85025; 85347; 92928; 93458; 99152; 99153; C1725; C1769; C1874; C9600; J1200; J1644; J3010; Q9967

== ENCOUNTER 2024-05-31 08:13 | Outpatient (CLI) | payer BC, SELFPAY ==
[2024-05-31 08:48] LABS: Basophils # 0.1 K/mm3 (0-0.2); Basophils % 0.9 % (0.1-2.0); Eosinophils # 0.5 K/mm3 (0.0-0.4); Eosinophils % 5.4 % (0.1-12.0); Hematocrit 46.3 % (42.0-52.0); Hemoglobin 15.9 g/dL (14.1-18.0); Lymphocytes # 1.6 K/mm3 (0.7-4.5); Lymphocytes % 17.9 % (10-50); Mean Corpuscular HGB Conc 34.3 g/dL (31.8-35.4); Mean Corpuscular Hemoglobin 31.9 pg (27.0-31.2); Mean Platelet Volume 10.1 fl (7.4-10.4); Monocytes # 0.7 K/mm3 (0.1-1.0); Monocytes % 7.3 % (1.7-9.3); Neutrophils # 6.1 K/mm3 (1.8-7.8); Neutrophils % 67.2 % (37.0-80.0); Platelet Count 254 K/mm3 (142-424); Red Blood Count 4.98 M/mm3 (4.60-6.20); Red Cell Distribution Width 12.8 % (11.5-17.5); White Blood Count 9.1 K/mm3 (4.8-10.8)
[2024-05-31 09:03] LABS: Chloride 100 mmol/L (98-107); Potassium 4.3 mmoL/L (3.5-5.1); Sodium 139 mmol/L (136-145)
[2024-05-31 09:04] LABS: Albumin Level 4.4 g/dl (3.5-5.0)
[2024-05-31 09:06] LABS: Anion Gap 9.3 mEq/L (5-15); Bilirubin,Unconjugated 0.7 mg/dL (0.0-1.1); Blood Urea Nitrogen 14 mg/dl (9-20); Calcium 9.9 mg/dl (8.4-10.2); Carbon Dioxide 34 mmol/L (22.0-30.0); Estimated Glomerular Filt Rate 57 ml/min (>60); GFR (African American) 68 ML/MIN (>60); Glucose 112 mg/dl (74-100)
[2024-05-31 09:07] LABS: Alanine Aminotransferase 31 U/L (12-78); Alkaline Phosphatase 68 U/L (38-126); Aspartate Amino Transferase 37 U/L (17-59); Bilirubin,Indirect 0.8 mg/dL (0.0-0.9); Bilirubin,Total 0.8 mg/dl (0.2-1.3); Chol/HDL Ratio 3.5 (1-3.5); Cholesterol 165 mg/dl (140-200); HDL Cholesterol 47 mg/dl (40-60); Total Protein,Serum 6.6 g/dl (6.3-8.2); Triglycerides 127 mg/dl (30-150); VLDL Cholesterol 25 mg/dL (0-40)
[2024-05-31 09:18] LABS: Direct LDL Cholesterol 89.32 mg/dL (100-129)
== END 2024-05-31 23:59 | disposition home or self-care (01) ==
LOC: LAB 08:15
PROVIDERS: Nurse Practitioner; PCP Family Medicine; Visit Provider Internal Medicine
DX: I25.10 Atherosclerotic heart disease of native coronary artery without angina pectoris (principal); R93.1 Abnormal findings on diagnostic imaging of heart and coronary circulation; R06.09 Other forms of dyspnea; E78.5 Hyperlipidemia, unspecified
CPT/HCPCS: 36415; 80048; 80061; 80076; 85025

== ENCOUNTER 2024-06-26 07:46 | Outpatient (CLI) | payer BC, SELFPAY ==
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
--- NOTE | 2024-06-26 08:00 | CA_ITS ---
FINAL REPORT CLINICAL HISTORY: CAD,HTN,SMOKER,RENAL INSUFF COMPARISON: None FINDINGS: Aorta velocity: 89.8 cm/sec Right kidney: 10.8 cm. No evidence of hydronephrosis or mass. Right intrarenal RI: 0.48-0.78 Right renal artery velocity: 200 cm/sec. Right RAR (Renal artery-Aortic Ratio): 2.23 Left Kidney: 11.5 cm. No evidence of hydronephrosis or mass. Left intrarenal RI: 0.53-0.66 Left renal artery velocity: 225 cm/sec. Left RAR (Renal Artery-Aortic Ratio): 2.5 IMPRESSION: The renal artery velocities are elevated bilaterally, more so in the left renal artery than the right. While the renal artery-aortic ratios are within normal limits, these findings are suggestive that greater than 60% stenosis may be present. Would recommend a CTA of the renal arteries for further evaluation. CT angiogram or postcontrast MR angiogram would be more sensitive for evaluation of possible renal artery stenosis. Reviewed, Interpreted and Dictated by Juan Jose Anne MD Transcribed by Shaila Ryder Authenticated and [facility]
== END 2024-06-26 23:59 | disposition home or self-care (01) ==
LOC: RT 07:47
PROVIDERS: PCP Family Medicine; Visit Provider Nurse Practitioner
DX: I25.10 Atherosclerotic heart disease of native coronary artery without angina pectoris (principal); I10 Essential (primary) hypertension; F17.200 Nicotine dependence, unspecified, uncomplicated
CPT/HCPCS: 93976

== ENCOUNTER 2024-07-16 08:22 | Day surgery (SDC) | payer BC, SELFPAY ==
[2024-07-16] VITALS (14 sets, daily range): BP systolic 104–140; BP diastolic 62–78; PULSE 51–62; RESP 16–20; O2SAT 95–100; BMI 26.4
--- NOTE | 2024-07-16 07:09 | IR_ITS ---
APPROVED REPORT Patient Location: Outpatient PROCEDURES Bilateral selective renal angiography INDICATION Hypertension, Renovascular hypertension, Renal insufficiency, Abnormal renal duplex Informed consent was obtained prior to the procedure. COMPLICATIONS NONE Estimated Blood Loss: LESS THAN 10 ML TECHNIQUE 1% lidocaine used to anesthetize the right femoral groin. The right femoral artery was accessed via the Seldinger technique. A 4 Maltese sheath was placed in the right femoral artery. The JR4 catheter was used to selectively intubate each renal artery. At the end of the diagnostic angiogram the patient was transferred to the postop holding area in stable condition for sheath removal. ANGIOGRAPHIC RESULTS Right renal artery singular normal Left renal artery singular and has an ostial proximal smooth 20 to 30% stenosis IMPRESSION Mild left renal artery stenosis PLAN 1. Medical management and treatment for essential hypertension 2. Renal dysfunction likely stems from hypertensive nephropathy Electronically signed by : Billy Corbett MD 07/16/2024 12:43:43
[2024-07-16 08:57] LABS: Basophils # 0.1 K/mm3 (0-0.2); Eosinophils # 0.5 Kmm3 (0.0-0.4); Eosinophils % 7.6 % (0.1-12.0); Hematocrit 43.5 % (42.0-52.0); Hemoglobin 14.5 g/dL (14.1-18.0); Immature Granulocytes # 0.06 10^3uL; Immature Granulocytes % 0.9 %; Lymphocytes # 1.3 K/mm3 (0.7-4.5); Lymphocytes % 18.6 % (10-50); Mean Corpuscular HGB Conc 33.3 g/dL (31.8-35.4); Mean Corpuscular Hemoglobin 31.8 pg (27.0-31.2); Mean Corpuscular Volume 95.4 fl (80-94); Mean Platelet Volume 10.1 fl (7.4-10.4); Monocytes # 0.6 K/mm3 (0.1-1.0); Monocytes % 9.1 % (1.7-9.3); Neutrophils # 4.3 K/mm3 (1.8-7.8); Neutrophils % 62.8 % (37.0-80.0); Nucleated Red Blood Cells # 0 10^3/uL; Nucleated Red Blood Cells % 0 %; Platelet Count 269 K/mm3 (142-424); Red Blood Count 4.56 M/mm3 (4.60-6.20); Red Cell Distribution Width 13.6 % (11.5-17.5); Red Cell Distribution Width-SD 47.6 fL; White Blood Count 6.8 K/mm3 (4.8-10.8)
[2024-07-16 08:59] LABS: Chloride 103 mmol/L (98-107)
[2024-07-16 09:00] LABS: Potassium 4.2 mmoL/L (3.5-5.1); Sodium 138 mmol/L (136-145)
[2024-07-16 09:02] LABS: Blood Urea Nitrogen 14 mg/dl (9-20); Creatinine Clearance Estimated 60 mL/min (50-200); Estimated Glomerular Filt Rate 52 ml/min (>60); GFR (African American) 63 ML/MIN (>60)
[2024-07-16 09:03] LABS: Anion Gap 7.2 mEq/L (5-15); Calcium 9.1 mg/dl (8.4-10.2); Carbon Dioxide 32 mmol/L (22.0-30.0); Glucose 118 mg/dl (74-100)
[2024-07-16] MEDS: diphenhydrAMINE 50MG/ML VIAL 50 MG IV (09:54)
[2024-07-16] MEDS: LIDOCAINE 1% 10ML MDV 10 ML IJ (09:54)
[2024-07-16] MEDS: 0.9 % SODIUM CHLORIDE 500 ML 25 ML IV (09:54)
[2024-07-16] MEDS: HEPARIN 1,000 UNITS/500ML NS (CATH LAB) 3000 UNIT IV (09:54)
[2024-07-16] MEDS: FENTANYL 100MCG/2ML VIAL 50 MCG IV (10:20)
[2024-07-16] MEDS: MIDAZOLAM HCL 1MG/ML 5ML VIAL 1 MG IV (10:20)
[2024-07-16] MEDS: IOPAMIDOL-370 (76%);100ML BOTTLE 20 ML IV (13:17)
== END 2024-07-16 13:58 | disposition home or self-care (01) ==
LOC: CATHLAB 08:23
PROVIDERS: PCP Family Medicine; Visit Provider Internal Medicine
DX: I70.1 Atherosclerosis of renal artery (principal); I15.0 Renovascular hypertension; I10 Essential (primary) hypertension; I25.10 Atherosclerotic heart disease of native coronary artery without angina pectoris; J44.9 Chronic obstructive pulmonary disease, unspecified; F17.210 Nicotine dependence, cigarettes, uncomplicated; Z82.49 Family history of ischemic heart disease and other diseases of the circulatory system; E78.5 Hyperlipidemia, unspecified; Q23.81 Bicuspid aortic valve; Z79.51 Long term (current) use of inhaled steroids; Z79.899 Other long term (current) drug therapy; Z95.5 Presence of coronary angioplasty implant and graft
CPT/HCPCS: 36252; 80048; 85025; 99152; C1725; C1769; C1894; J1200; J1644; J3010; Q9967